=== PATIENT | male | born 1960 | race Caucasian/White ===

== ENCOUNTER 2021-03-03 21:23 | Day surgery (SDCO) | payer OTHER ==
[2021-03-03 21:58] LABS: BASOPHIL 0.4 % (0-2); EOSINOPHIL 1.2 % (0-5); HCT 47.2 % (42.0-52.0); HGB 16.5 g/dl (13.2-18.0); LYMPHOCYTE 23.1 % (15-48); MCH 32.3 pg (25.0-31.0); MCV 92.4 fL (78.0-100.0); MPV 9.9 fL (6.0-9.5); NEUTROPHIL 69.7 % (41-80); NRBC 0; PLT 266 K/uL (150-400); RBC 5.11 M/uL (4.70-6.00); RDW 12.6 % (11.5-14.0); WBC 13.3 K/uL (4.0-10.5)
[2021-03-03 22:08] LABS: ALBUMIN 3.5 g/dL (3.4-5.0); BILIRUBIN - TOTAL 0.6 mg/dL (0.2-1.0); BUN/CREAT RATIO (CALC) 13.3 RATIO; CREATININE 0.75 mg/dL (0.67-1.17); GLOBULIN (CALCULATION) 3.9 g/dL; POTASSIUM 4.3 mmol/L (3.5-5.1); TOTAL PROTEIN 7.4 g/dL (6.4-8.2)
[2021-03-03 22:17] LABS: PRO-BNP 324 pg/mL (<125)
[2021-03-04] MEDS ORDERED: PRINIVIL20 MG PO (02:26)
[2021-03-04] MEDS ORDERED: HCTZ12.5 MG PO (02:26)
[2021-03-04] MEDS ORDERED: LIPITOR20 MG PO (02:27)
[2021-03-04] MEDS ORDERED: DIGITEK250 MCG PO (02:27)
[2021-03-04] MEDS ORDERED: TOPROL XL 50 MG50 MG PO (02:27)
[2021-03-04] MEDS ORDERED: BAYER CHEWABLE81 MG PO (02:28)
[2021-03-04 04:24] LABS: CHOLESTEROL 116 mg/dL (<200); HDL 40 mg/dL (40-60); LDL - DIRECT 54 mg/dL (<100); TRIGLYCERIDES 170 mg/dL (<150)
[2021-03-04 07:14] LABS: BASOPHIL 0.3 % (0-2); EOSINOPHIL 0.7 % (0-5); HCT 47.2 % (42.0-52.0); HGB 16.6 g/dl (13.2-18.0); LYMPHOCYTE 19.8 % (15-48); MCH 32.9 pg (25.0-31.0); MCHC 35.2 g/dL (32.0-36.0); MCV 93.5 fL (78.0-100.0); MONOCYTE 5.7 % (0-12); MPV 9.9 fL (6.0-9.5); NEUTROPHIL 72.8 % (41-80); NRBC 0; PLT 221 K/uL (150-400); RBC 5.05 M/uL (4.70-6.00); WBC 13.7 K/uL (4.0-10.5)
[2021-03-04 07:45] LABS: CREATININE 0.86 mg/dL (0.67-1.17); POTASSIUM 4.1 mmol/L (3.5-5.1)
--- NOTE | 2021-03-04 14:19 | NUR ---
03/04/21 Mr. Valdez was transferred to [facility].
== END 2021-03-04 11:45 | disposition other institution (70) ==
LOC: FER 21:23 → FTCU 03-04 01:10 → FER 03-04 01:13 → FTCU 03-04 01:40
PROVIDERS: Nurse Practitioner; Student in an Organized Health Care Education/Training Program; ADMIT Allergy & Immunology Allergy
DX: I20.0 Unstable angina (principal); I48.20 Chronic atrial fibrillation, unspecified; I45.10 Unspecified right bundle-branch block; I10 Essential (primary) hypertension; F17.210 Nicotine dependence, cigarettes, uncomplicated; R05 Cough; E55.9 Vitamin D deficiency, unspecified; G89.29 Other chronic pain; M54.9 Dorsalgia, unspecified; Z98.890 Other specified postprocedural states; Z20.822 Contact with and (suspected) exposure to COVID-19
CPT/HCPCS: 36415; 71045; 80048; 80053; 80061; 83880; 84484; 85025; 93005; G0378; J1650; J1940; U0002